=== PATIENT | male | born 1955 | race Caucasian/White ===

== ENCOUNTER 2022-04-20 14:46 | Emergency (ER) | payer BC ==
[~2022-04-20] VITALS: Ht 180.3 cm; Wt 91.0 kg
[2022-04-20] MEDS ORDERED: ACETAMINOPHEN 325MG TABLET PO STA (15:17)
[2022-04-20] MEDS ORDERED: SODIUM CHLORIDE 0.9% 1,000 ML IV ONE (15:30)
[2022-04-20 16:12] LABS: BASOPHILS % 0.5 % (0.0-2.0); EOSINOPHILS % 0.9 % (0.0-5.0); HEMATOCRIT. 38.1 % (42.0-52.0); HEMOGLOBIN. 13.1 g/dL (14.0-18.0); LYMPHOCYTES % 16.1 % (20.0-50.0); MEAN CORPUSCULAR HEMOGLOBIN 28.9 pg (28.0-32.0); MEAN PLATELET VOLUME 7.5 fl (7.4-10.4); MONOCYTES % 7.8 % (2.0-8.0); NEUTROPHILS % 74.7 % (40.0-76.0); PLATELET 276 x1000/uL (130-400); RED BLOOD CELL COUNT 4.54 mill/uL (4.7-6.1)
[2022-04-20 16:18] LABS: CHLORIDE 106 mEq/L (98-107)
[2022-04-20 16:20] LABS: PARTIAL THROMBOPLASTIN TIME 37.9 sec (23.4-31.0); PROTHROMBIN TIME 11.2 sec (9.6-11.0)
[2022-04-20 16:30] VITALS: BP_DIAS 86
[2022-04-20 19:52] VITALS: BP_SYST 196
== END 2022-04-20 16:30 | disposition home or self-care (01) ==
LOC: ER 16:14
DX: R55 Syncope and collapse (principal); W18.39XA Other fall on same level, initial encounter; Y93.89 Activity, other specified; Y92.89 Other specified places as the place of occurrence of the external cause; Y99.8 Other external cause status; I10 Essential (primary) hypertension
CPT/HCPCS: 36415; 70450; 71045; 73030; 73110; 80053; 83880; 84484; 85025; 85610; 85730; 86850; 86900; 86901; 93005; 99285; J7030